=== PATIENT | male | born 1990 | race Caucasian/White ===

== ENCOUNTER 2021-11-08 15:14 | Inpatient (IN) | payer OTHER ==
[~2021-11-08] VITALS: Ht 170.2 cm; Wt 71.4 kg
[2021-11-08 16:17] LABS: BASOPHILS % (AUTO) 1.1 % (0.0-2.0); EOSINOPHILS % (AUTO) 3.5 % (1.0-6.0); HEMATOCRIT 40.8 % (41-53); HEMOGLOBIN 13.7 g/dL (13.5-17.5); LYMPHOCYTES # (AUTO) 1.1 K/uL (1.0-4.8); LYMPHOCYTES % (AUTO) 21.9 % (22.0-44.0); MEAN CORPUSCULAR HEMOGLOBIN 29.3 pg (26.0-34.0); MEAN CORPUSCULAR HGB CONC 33.6 G/dL (31.0-37.0); MEAN CORPUSCULAR VOLUME 87 fL (80-100); MONOCYTES # (AUTO) 0.6 K/uL (0.1-1.0); MONOCYTES % (AUTO) 11.9 % (2.0-9.0); NEUTROPHILS % (AUTO) 61.6 % (40.0-70.0); PLATELET COUNT (AUTO) 274 K/uL (150-450); RED BLOOD CELL COUNT(AUTO) 4.67 MIL/uL (4.50-5.90); RED CELL DISTRIBUTION WIDTH 14.3 % (11.5-14.5)
[2021-11-08 16:22] LABS: ANION GAP 5 mmol/L (8-16); CALCIUM, TOTAL 8.6 mg/dL (8.8-10.5); CARBON DIOXIDE 30 mmol/L (22-29); CHLORIDE 105 mmol/L (98-107); CREATININE 0.86 mg/dL (0.60-1.30); GLOMERULAR FILTR. RATE CALC > 60 mL/min (>60); GLUCOSE,RANDOM 81 mg/dL (70-110); POTASSIUM 4.4 mmol/L (3.5-5.1); SODIUM SERUM 140 mmol/L (136-145); UREA NITROGEN, BLOOD 14 mg/dL (7-18)
[2021-11-08 16:28] LABS: ALANINE AMINOTRANSFERASE 110 U/L (12-78); ALBUMIN 3.4 g/dL (3.4-5.0); ALKALINE PHOSPHATASE 96 U/L (46-116); ASPARTATE AMINOTRANSFERASE 69 U/L (15-37); BILIRUBIN,TOTAL 0.4 mg/dL (0.1-1.0); TOTAL PROTEIN, SERUM 7.3 g/dL (6.4-8.2)
[2021-11-08 16:54] LABS: AMPHET/METH SCREEN,URINE POSITIVE (NEGATIVE); BARBITURATE SCREEN, URINE NEGATIVE (NEGATIVE); BENZODIAZEPINES SCREEN,URINE NEGATIVE (NEGATIVE); CANNABINOID SCREEN,URINE NEGATIVE (NEGATIVE); COCAINE SCREEN,URINE NEGATIVE (NEGATIVE); METHADONE SCREEN, URINE NEGATIVE (NEGATIVE); OPIATE SCREEN,URINE NEGATIVE (NEGATIVE); PHENCYCLIDINE SCREEN,URINE NEGATIVE (NEGATIVE)
[2021-11-08 17:00] LABS: COVID AG,FIA SOURCE NASOPHARYNGEAL
[2021-11-08] MEDS ORDERED: SODIUM CHLORIDE 0.9% 1,000 ML IV ONE (17:00)
[2021-11-08] MEDS ORDERED: ONDANSETRON HCL 4 MG/2 ML VIAL IVP ONE (17:00)
[2021-11-08] MEDS ORDERED: METOCLOPRAMIDE HCL 5 MG/ML 2 ML VIAL IVP PRN (19:15)
[2021-11-08] MEDS ORDERED: LORazepam 2 MG/ML VIAL IVP PRN (19:15)
[2021-11-08] MEDS ORDERED: LOPERAMIDE HCL 2 MG CAPSULE PO PRN (19:15)
[2021-11-08] MEDS ORDERED: DICYCLOMINE HCL 10 MG CAPSULE PO PRN (19:15)
[2021-11-08] MEDS: TEMAZEPAM 15 MG CAPSULE PO SCH (21:53)
[2021-11-08 22:10] VITALS: BP 131/75
[2021-11-08] MEDS ORDERED: INFLUENZA VIRUS VACCINE QVS 2021-22 (6MO+)/PF 60 MCG/0.5 ML SYRINGE IM. ONE (23:00)
[2021-11-09 04:20] VITALS: BP 129/84
[2021-11-09 09:22] VITALS: BP 113/65
[2021-11-09 15:31] VITALS: BP 122/56
[2021-11-09] MEDS: TEMAZEPAM 15 MG CAPSULE PO SCH (20:55)
[2021-11-09 21:24] VITALS: BP 128/73
[2021-11-10 04:37] VITALS: BP 106/72
[2021-11-10 08:22] VITALS: BP 124/71
== END 2021-11-10 14:00 | DRG 897 ==
LOC: EMS 15:16 → 6S 19:00
PROVIDERS: ADMIT Internal Medicine; ATTEND Internal Medicine
DX: F10.20 Alcohol dependence, uncomplicated (principal); F19.20 Other psychoactive substance dependence, uncomplicated; F17.210 Nicotine dependence, cigarettes, uncomplicated; Y90.9 Presence of alcohol in blood, level not specified; Z20.822 Contact with and (suspected) exposure to COVID-19
CPT/HCPCS: 80053; 85025; 99285; G0480; J2405; J7030